=== PATIENT | male | born 2000 | race Caucasian/White ===

== ENCOUNTER 2019-02-24 14:19 | Emergency (ER) | payer OTHER ==
--- NOTE | 2019-02-24 15:17 | RAD ---
Exam:4 views left knee HISTORY: Pain. Injury. COMPARISON: None FINDINGS: No joint effusion. Joint spaces are preserved. No malalignment or fracture. IMPRESSION: Unremarkable 4 views left knee
== END 2019-02-24 15:40 | disposition home or self-care (01) ==
LOC: EDBD 14:19 → SCSER 14:19
DX: S89.92XA Unspecified injury of left lower leg, initial encounter (principal); E10.9 Type 1 diabetes mellitus without complications; F17.290 Nicotine dependence, other tobacco product, uncomplicated; J45.909 Unspecified asthma, uncomplicated; Z79.51 Long term (current) use of inhaled steroids; X50.1XXA Overexertion from prolonged static or awkward postures, initial encounter